=== PATIENT | male | born 1970 | race Caucasian/White ===

== ENCOUNTER → 2017-01-30 | Outpatient (CLI) | payer OTHER ==
--- NOTE | 2017-01-30 10:28 | REP ---
CT CERVICAL SPINE WITHOUT CONTRAST: HISTORY: Radiculitis. COMPARISON: 09/12/2014. Disc bulges are present at the C4-5 through C6-7 levels. There is minimal narrowing of the spinal canal. Uncinate process and/or facet hypertrophy are present at the C3-4 and C5-6 levels. These findings produce minimal narrowing of the neural foramina. There is no other disc bulge or herniation. The remaining neural foramina are patent. The C5-6 and C6-7 intervertebral discs are decreased in height consistent with disc degeneration. There is no subluxation. IMPRESSION: There is cervical spondylosis at the C3-4 through C6-7 levels. The disc bulge at the C6-7 level and foraminal narrowing at the C3-4 and C5-6 levels are new findings. Signed by Carlos Tellez MD 01/30/2017 10:41 A
== END ==
LOC: M RAD 09:25
PROVIDERS: ATTEND Physician Assistant
DX: M50.20 Other cervical disc displacement, unspecified cervical region (principal)

== ENCOUNTER 2017-05-11 10:56 | Day surgery (SDC) | payer OTHER ==
[2017-05-11] MEDS ORDERED: ceFAZolin 2 GM/D5W 50 ML IV BAG (J0690 PER 500MG) As Ordered (11:11)
[2017-05-11] MEDS ORDERED: LR 1,000 ML IV ×2 (11:15→17:00)
[2017-05-11] MEDS ORDERED: VANCOMYCIN 1000 MG/20 ML VIAL (J3370) As Ordered (11:49)
[2017-05-11] MEDS ORDERED: VANCOMYCIN HCL 1,000 MG, VIAL MATE ADAPTER 1 EACH in D5W 250 ML IV (12:58)
[2017-05-11] MEDS: VANCOMYCIN HCL 1,000 MG, VIAL MATE ADAPTER 1 EACH in D5W 250 ML IV (14:18)
[2017-05-11] MEDS ORDERED: ALBUTEROL SULFATE 2.5 MG/0.5 ML INH NEB SOLN As Ordered (14:24)
[2017-05-11] MEDS ORDERED: ALBUTEROL SULFATE 2.5 MG/0.5 ML INH NEB SOLN INH (14:45)
[2017-05-11] MEDS: LIDOCAINE 1% SDV INJ 30 ML VIAL As Ordered (14:54)
[2017-05-11] MEDS: BACITRACIN PWD 50,000 UNITS VIAL As Ordered (14:58)
[2017-05-11] MEDS ORDERED: MIDAZOLAM INJ 5 MG/ML VIAL (J2250) As Ordered (15:06)
[2017-05-11] MEDS ORDERED: fentaNYL 100 MCG/2 ML INJECTION (J3010) As Ordered (15:06)
[2017-05-11] MEDS: ISOVUE-300 61% 50ML VIAL (Q9967) As Ordered (15:15)
[2017-05-11] MEDS ORDERED: fentaNYL 100 MCG/2 ML INJECTION (J3010) IV (17:00)
[2017-05-11] MEDS ORDERED: ONDANSETRON 4MG/2ML VIAL (J2405) IV (17:00)
== END 2017-05-11 17:20 | disposition home or self-care (01) ==
LOC: M SDC 10:56
DX: Z45.010 Encounter for checking and testing of cardiac pacemaker pulse generator [battery] (principal); R06.02 Shortness of breath; R01.1 Cardiac murmur, unspecified; I10 Essential (primary) hypertension; J44.9 Chronic obstructive pulmonary disease, unspecified; E78.2 Mixed hyperlipidemia; K21.9 Gastro-esophageal reflux disease without esophagitis; G47.33 Obstructive sleep apnea (adult) (pediatric); F17.210 Nicotine dependence, cigarettes, uncomplicated; F32.9 Major depressive disorder, single episode, unspecified; F41.9 Anxiety disorder, unspecified; J45.909 Unspecified asthma, uncomplicated; Z85.118 Personal history of other malignant neoplasm of bronchus and lung; M47.812 Spondylosis without myelopathy or radiculopathy, cervical region; F10.21 Alcohol dependence, in remission; Z79.899 Other long term (current) drug therapy; Z79.82 Long term (current) use of aspirin; Z79.51 Long term (current) use of inhaled steroids; Z88.0 Allergy status to penicillin; Z88.8 Allergy status to other drugs, medicaments and biological substances; Z88.6 Allergy status to analgesic agent
CPT/HCPCS: 33228